=== PATIENT | male | born 1995 | race American Indian/Alaskan Native ===

== ENCOUNTER 2017-04-22 19:03 | Emergency (ER) | payer SELFPAY ==
[2017-04-22] MEDS ORDERED: ZOFRAN IM ONE (21:14)
[2017-04-22] MEDS ORDERED: TORADOL IM ONE (21:16)
--- NOTE | 2017-04-22 21:52 | XRay Report ---
FINAL REPORT PROCEDURE: XR CHEST ROUTINE 2V TECHNIQUE: PA and lateral chest radiographs were obtained. CPT 88621 HISTORY: cough COMPARISON: No prior studies are available for comparison. FINDINGS: Heart: Normal. Mediastinum/Vessels: Normal. Lungs/Pleural space: Normal. Bony thorax: No acute osseous abnormality. Other: IMPRESSION: Normal examination.
[2017-04-23] MEDS ORDERED: TYLENOL PO ONE (07:08)
[2017-04-23] MEDS ORDERED: ZOFRAN ODT PO ONE (07:20)
--- NOTE | 2017-04-23 07:23 | Emergency Department Report ---
- General Chief Complaint: Fever Stated Complaint: VOMITING FLU LIKE SYMPTOMS Time Seen by Provider: 04/23/17 07:07 Source: patient Mode of arrival: Ambulatory Limitations: No Limitations - History of Present Illness Initial Comments: 21-year-old male past medical history none presents with complaint of 2 days of sore throat coughing nausea with some intermittent vomiting fevers and body aches. Patient is awake alert and oriented 3 does not appear to be in acute distress. pt states he has had multiple coworkers have been sick with flulike symptoms within the last week. Patient denies chest pain palpitations shortness of breath at rest. Patient states he has been able tolerate some fluids since last night but is still having nausea. Denies any productive cough. MD Complaint: fever, sore throat, nasal congestion Onset/Timin -: days(s) Severity: mild Consistency: intermittent Associated Symptoms: fever, myalgias, cough, nausea, vomiting Treatments Prior to Arrival: none - Related Data Previous Rx's Medication Instructions Recorded Last Taken Type Bismuth Subsalicylate 10 mg PO Q6H PRN #1 bottle 04/23/17 Unknown Rx [Pepto-Bismol] Ibuprofen [Motrin] 800 mg PO Q8HR PRN #30 tablet 04/23/17 Unknown Rx Ondansetron [Zofran Odt] 4 mg PO Q8H PRN #12 tab.rapdis 04/23/17 Unknown Rx Oseltamivir [Tamiflu] 75 mg PO BID #10 cap 04/23/17 Unknown Rx Phenylephrine/Dm/Acetaminop/GG 15 ml PO Q8H PRN #1 liquid 04/23/17 Unknown Rx [Mucinex Invz-Iqk-Jpucoqwswg Lq] Allergies Allergy/AdvReac Type Severity Reaction Status Date / Time No Known Allergies Allergy Verified 04/23/17 07:21 ED Review of Systems ROS: Stated complaint: VOMITING FLU LIKE SYMPTOMS Other details as noted in HPI Constitutional: fever, malaise. denies: chills Eyes: denies: eye pain, eye discharge, vision change ENT: denies: ear pain, throat pain Respiratory: cough. denies: shortness of breath, wheezing Cardiovascular: denies: chest pain, palpitations Endocrine: no symptoms reported Gastrointestinal: nausea. denies: abdominal pain, diarrhea Genitourinary: denies: urgency, dysuria Musculoskeletal: denies: back pain, joint swelling, arthralgia Skin: denies: rash, lesions Neurological: denies: headache, weakness, paresthesias Psychiatric: denies: anxiety, depression Hematological/Lymphatic: denies: easy bleeding, easy bruising ED Past Medical Hx - Past Medical History Previous Medical History?: No - Surgical History Past Surgical History?: No - Social History Smoking Status: Never Smoker Substance Use Type: None - Medications Home Medications: Home Medications Medication Instructions Recorded Confirmed Last Taken Type Bismuth Subsalicylate 10 mg PO Q6H PRN #1 bottle 04/23/17 Unknown Rx [Pepto-Bismol] Ibuprofen [Motrin] 800 mg PO Q8HR PRN #30 tablet 04/23/17 Unknown Rx Ondansetron [Zofran Odt] 4 mg PO Q8H PRN #12 tab.rapdis 04/23/17 Unknown Rx Oseltamivir [Tamiflu] 75 mg PO BID #10 cap 04/23/17 Unknown Rx Phenylephrine/Dm/Acetaminop/GG 15 ml PO Q8H PRN #1 liquid 04/23/17 Unknown Rx [Mucinex Qspu-Keq-Qyzeinejyv Lq] ED Physical Exam - General Limitations: No Limitations General appearance: alert, in no apparent distress - Head Head exam: Present: atraumatic, normocephalic - Eye Eye exam: Present: normal appearance, PERRL, EOMI - ENT ENT exam: Present: mucous membranes moist - Neck Neck exam: Present: normal inspection, full ROM - Respiratory Respiratory exam: Present: normal lung sounds bilaterally. Absent: respiratory distress - Cardiovascular Cardiovascular Exam: Present: regular rate, normal rhythm. Absent: systolic murmur, diastolic murmur, rubs, gallop - GI/Abdominal GI/Abdominal exam: Present: soft, normal bowel sounds - Rectal Rectal exam: Present: deferred - Extremities Exam Extremities exam: Present: normal inspection - Back Exam Back exam: Present: normal inspection - Neurological Exam Neurological exam: Present: alert, oriented X3 - Psychiatric Psychiatric exam: Present: normal affect, normal mood - Skin Skin exam: Present: warm, dry, intact, normal color. Absent: rash ED Course Vital Signs 04/22/17 04/23/17 21:10 08:10 Temperature 101.1 F H 99.8 F H Pulse Rate 90 88 Respiratory 16 20 Rate Blood Pressure 141/76 Blood Pressure 140/78 [Left] O2 Sat by Pulse 99 99 Oximetry ED Medical Decision Making - Lab Data Result diagrams: 04/23/17 07:40 04/23/17 07:40 - Medical Decision Making A/P: Influenza A 1-vital signs stable for discharge, patient's fever has decreased. Labs unremarkable 2-patient tolerating by mouth and food fluid for discharge without difficulty 3-Mucinex when necessary, Motrin when necessary, Zofran when necessary 4-I discussed with patient that since his symptoms started 2 days ago he is within window of utility of Tamiflu. I discussed with patient the side effects and benefits of potentially taking Tamiflu. I also took time to inform the patient on the severity of influenza this season. After this discussion patient made a decision and elected to take Tamiflu at this time. 5- I specifically advised patient to return to the ED if he experiences worsening symptoms elevated fevers persistent nausea and vomiting palpitations shortness of breath at rest worsened lethargy or persistent fevers above 100.4F despite antipyretic use. pt stated he understood my instructions. Critical care attestation.: If time is entered above; I have spent that time in minutes in the direct care of this critically ill patient, excluding procedure time. ED Disposition Clinical Impression: Influenza A Disposition: DC-01 TO HOME OR SELFCARE Is pt being admited?: No Does the pt Need Aspirin: No Condition: Stable Instructions: Influenza (ED), Acute Nausea and Vomiting (ED), Viral Syndrome ( ED) Prescriptions: Bismuth Subsalicylate [Pepto-Bismol] 10 mg PO Q6H PRN #1 bottle PRN Reason: Indigestion Ibuprofen [Motrin] 800 mg PO Q8HR PRN #30 tablet PRN Reason: Pain Ondansetron [Zofran Odt] 4 mg PO Q8H PRN #12 tab.rapdis PRN Reason: Nausea Oseltamivir [Tamiflu] 75 mg PO BID #10 cap Phenylephrine/Dm/Acetaminop/GG [Mucinex Vwlc-Oqx-Lpkyhjsmrz Lq] 15 ml PO Q8H PRN #1 liquid PRN Reason: Cough Referrals: ABHIJEET PORTILLO MD [Primary Care Provider] - 3-5 Days [facility] [Outside] - 3-5 Days [facility] [Outside] - 3-5 Days Forms: Work/School Release Form(ED) Time of Disposition: 08:45
[2017-04-23 08:11] VITALS: BP 140/78
[2017-04-23 08:22] LABS: Basophils % (Auto) 0.2 % (0.0-1.8); Hematocrit 50.8 % (35.5-45.6); Lymphocytes # (Auto) 0.4 K/mm3 (1.2-5.4); Lymphocytes % (Auto) 5.8 % (13.4-35.0); Mean Corpuscular HGB Conc 34 % (32-34); Mean Corpuscular Hemoglobin 29 pg (28-32); Mean Corpuscular Volume 88 fl (84-94); Monocytes # (Auto) 1.1 K/mm3 (0.0-0.8); Monocytes % (Auto) 15.6 % (0.0-7.3); Platelet Count 175 K/mm3 (140-440); Red Blood Count 5.79 M/mm3 (3.65-5.03); Red Cell Distribution Width 14.7 % (13.2-15.2)
[2017-04-23 08:40] LABS: BUN/Creatinine Ratio 17; Blood Urea Nitrogen 20 mg/dL (9-20); Calcium 9.6 mg/dL (8.4-10.2); Hemolysis Index 14
== END 2017-04-23 08:55 | disposition home or self-care (01) ==
LOC: ED 19:03
DX: J10.1 Influenza due to other identified influenza virus with other respiratory manifestations (principal)
CPT/HCPCS: 36415; 71046; 80048; 82550; 85025; 87400; 96372; 99284; J1885; J2405; Q0162